=== PATIENT | male | born 1965 | race Caucasian/White ===

== ENCOUNTER 2017-06-30 07:05 | Day surgery (SDC) | payer OTHER ==
[~2017-06-30] VITALS: Ht 165.1 cm; Wt 92.9 kg
[2017-06-30 07:47] VITALS: Ht 165.1 cm; Wt 92.9 kg
[2017-06-30] MEDS ORDERED: OMEPRAZOLE PO (08:00)
[2017-06-30] MEDS ORDERED: ATORVASTATIN PO (08:00)
[2017-06-30] MEDS ORDERED: JANUVIA PO (08:00)
[2017-06-30] MEDS ORDERED: LISINOPRIL PO (08:00)
[2017-06-30] MEDS ORDERED: METFORMIN PO (08:00)
[2017-06-30] MEDS ORDERED: ATENOLOL PO (08:00)
[2017-06-30] MEDS ORDERED: ASPI-535 PO (08:00)
[2017-06-30 08:22] VITALS: BP 100/57; PULSE 57; RESP 18
[2017-06-30] MEDS ORDERED: LIDOCAINE 2% (SDV) 5 ML INJ ONE (08:32)
[2017-06-30] MEDS ORDERED: PROPOFOL 80 ML ONE (08:32)
--- NOTE | 2017-06-30 09:28 | OPPN ---
Date/Time of Note Date/Time of Note DATE: 06/30/17 TIME: 09:26 Operative Report Preoperative Diagnosis Chronic heartburn Positive occult blood in stool Screening colonoscopy Postoperative Diagnosis Gastric polyp in the prepyloric area Gastritis with erosions Gastroesophageal reflux disease Operation/Procedure Performed Esophagogastroduodenoscopy and biopsy Colonoscopy and biopsy Tattooing the area of sigmoid mass Provider: JAMMIE ARREDONDO MD Anesthesia Type: MAC Estimated blood loss: none Transfusion Required: no Specimens Biopsy gastric polyp Biopsy sigmoid mass Grafts/Implants: none Complications: no JAMMIE ARREDONDO MD Jun 30, 2017 09:28
--- NOTE | 2017-06-30 11:42 | GILP ---
DATE OF PROCEDURE: 06/30/2017 PROCEDURE PERFORMED: 1. Esophagogastroduodenoscopy and biopsy. 2. Colonoscopy and biopsy. SURGEON: Angelina Champagne MD. PREOPERATIVE DIAGNOSIS: 1. Chronic heartburn. 2. Positive occult blood in stool. 3. Screening colonoscopy. POSTOPERATIVE DIAGNOSES: 1. Gastroesophageal reflux disease. 2. Polyp in the prepyloric area and biopsies were taken for histopathology. 3. Colonoscopy all the way to the cecum. 4. Polypoid mass in the sigmoid colon at 30 cm from the anus, and biopsies were taken. 5. The area was tattooed with Amy ink. 6. Internal hemorrhoids. INDICATION: Mr. Hector Bocanegra is a 52-year-old male patient who had chronic heartburn not responding to therapy. The patient was noted to have positive occult blood in stool. He never had a screening colonoscopy. The procedures and possible complications were well explained to the patient. He understood and consented to the procedure. DESCRIPTION OF PROCEDURE: Under influence of anesthesia, the gastroscope was carefully introduced into the esophagus. Under direct vision, it was advanced to the stomach, into the pylorus, into the duodenal bulb, and descending duodenum. FINDINGS: Esophagus: The patient had gastroesophageal reflux disease. Stomach: He had a gastric polyp in the prepyloric area and biopsies were taken for histopathology. He was also noted to have gastritis. Duodenum was normal. DESCRIPTION OF PROCEDURE: The colonoscope was carefully introduced in the rectum and under direct vision, it was advanced all the way to the cecum. FINDINGS: The patient had a polypoid mass in the sigmoid colon at 30 cm from the anus, and multiple biopsies were taken for histopathology. The patient had internal hemorrhoids. The area of the sigmoid mass was tattooed with Amy ink. He tolerated the procedures very well. There was no complication from the procedures. At the end of procedure, he was awake with stable vital signs. He was discharged home in care of his family. IMPRESSION: Please see postop diagnoses. PLAN: 1. Continue omeprazole. 2. Add Zantac 300 mg p.o. q.h.s. 3. Await histopathology reports. 4. The patient will need surgical evaluation for the segmental resection of the sigmoid colon which has got the polypoid mass. Dictated By: MD LOGAN Casillas/ari/kelly /Document#: [id number]
== END 2017-06-30 17:02 | disposition home or self-care (01) ==
LOC: GIL 07:05
PROVIDERS: ATTEND Internal Medicine Gastroenterology
DX: Z12.11 Encounter for screening for malignant neoplasm of colon (principal); K29.50 Unspecified chronic gastritis without bleeding; D12.5 Benign neoplasm of sigmoid colon; K21.9 Gastro-esophageal reflux disease without esophagitis; K64.8 Other hemorrhoids; E11.9 Type 2 diabetes mellitus without complications; I10 Essential (primary) hypertension
CPT/HCPCS: 43239; 45380; 82962; 88305; 88312; Z7610

== ENCOUNTER 2018-07-13 05:56 | Day surgery (SDC) | END 2018-07-13 13:35 | disposition home or self-care (01) ==